=== PATIENT | female | born 1965 | race Two or more races ===

== ENCOUNTER → 2018-05-14 | Outpatient (CLI) | payer OTHER ==
--- NOTE | 2018-05-14 12:54 | CT ---
EXAMINATION TYPE: CT abdomen pelvis w con DATE OF EXAM: 05/14/2018 COMPARISON: None HISTORY: Change in bowel habits, extreme constipation CT DLP: 3070.8 mGycm Automated exposure control for dose reduction was used. CONTRAST: CT scan of the abdomen pelvis is performed with IV Contrast, patient injected with 100 mL of Isovue 3 00. FINDINGS- LUNG BASES-heart size is the upper limits of normal. LIVER/GB-liver reduced in attenuation correlate for hepatic steatosis. PANCREAS- No gross abnormality is seen. SPLEEN- No gross abnormality is seen. ADRENALS- No gross abnormality is seen. KIDNEYS/BLADDER- no hydronephrosis or nephrolithiasis. There are bilateral simple appearing renal cys ts. Larger right upper pole renal lesion has a septation compatible with a Bosniak 2 classification c yst.. BOWEL- no bowel dilatation. Normal appendix. LYMPH NODES- No greater than 1cm abdominal or pelvic lymph nodes areappreciated. OSSEOUS STRUCTURES- No significant abnormality is seen. OTHER- small hiatal hernia noted. Aorta of normal caliber. Hypertrophic change of the vertebral colu mn. Small anterior abdominal wall hernia noted containing peritoneal fat. Calcification the subcutane ous tissues on the right overlying the gluteal region likely related to granuloma. IMPRESSION- 1. Bilateral renal cysts. 2. Correlate for hepatic steatosis. 3. Bowel gas pattern is nonspecific with no obstruction. There does not appear to be a significant am ount of retained fecal debris throughout the colon. Right colon demonstrates a mildly thickened wall which most likely is related to incomplete distention rather than true wall thickening. If there is c oncern for polyp or mucosal lesion correlate with direct visualization as clinically warranted.
== END | disposition home or self-care (01) ==
LOC: RADCTMAIN 10:16
PROVIDERS: ATTEND Family Medicine
DX: N28.1 Cyst of kidney, acquired (principal)
CPT/HCPCS: 74177; Q9967

== ENCOUNTER 2018-06-18 08:25 | Day surgery (SDC) | payer OTHER ==
[~2018-06-18 08:25] MED LIST: LACTATED RINGERS 1,000 ML IV SCH
[2018-06-18 08:45] VITALS: TEMP 97.8
[2018-06-18] MEDS ORDERED: LIDOCAINE 1% 20 ML VIAL (10MG/ML) FOR IV START INTRADERMA ONE (08:50)
[2018-06-18] MEDS ORDERED: LACTATED RINGERS 1,000 ML IV ONE (08:58)
[2018-06-18] MEDS ORDERED: MIDAZOLAM 2 MG/2 ML VIAL ONE (09:17)
[2018-06-18] MEDS ORDERED: fentaNYL (PF) 50 MCG/ML 2 ML AMP ONE (09:17)
[2018-06-18] MEDS ORDERED: PROPOFOL 10 MG/ML 20 ML VIAL IV ONE (09:17)
--- NOTE | 2018-06-18 09:21 | P.GSHP ---
History of Present Illness H&P Date: 06/18/18 Chief Complaint: GERD,Colitis This a 52-year-old female patient safe for EGD and colonoscopy. Patient issues with GERD. She's also had change in bowel movements with abdominal pain and diarrhea. The patient had a computed tomography scan which showed thickening of the right colon wall. Past Medical History Past Medical History: GERD/Reflux, Hyperlipidemia, Hypertension, Musculoskeletal Disorder, Skin Disorder Additional Past Medical History / Comment(s): abd. pain, intermittent blood in stools, back pain, no longer taking BP medication History of Any Multi-Drug Resistant Organisms: None Reported Past Surgical History: Section Additional Past Surgical History / Comment(s): lipoma removed Past Anesthesia/Blood Transfusion Reactions: Motion Sickness Smoking Status: Never smoker - Past Family History Mother Family Medical History: No Reported History Medications and Allergies Home Medications Medication Instructions Recorded Confirmed Type Atorvastatin [Lipitor] 20 mg PO HS 10/21/15 06/14/18 History Cyclobenzaprine [Flexeril] 10 mg PO HS 10/21/15 06/14/18 History Amitriptyline HCl [Elavil] 25 mg PO HS 06/14/18 06/14/18 History Naproxen [Naprosyn] 500 mg PO Q12HR PRN 06/14/18 06/14/18 History Allergies Allergy/AdvReac Type Severity Reaction Status Date / Time No Known Allergies Allergy Verified 06/13/18 15:30 Surgical - Exam Vital Signs Temp Pulse Resp BP Pulse Ox 97.8 F 78 18 133/60 98 06/18/18 08:44 06/18/18 08:44 06/18/18 08:44 06/18/18 08:44 06/18/18 08:44 - General well developed, well nourished, no distress - Eyes PERRL - ENT normal pinna - Neck no masses - Respiratory normal expansion - Cardiovascular Rhythm: regular - Abdomen Abdomen: soft, non tender Assessment and Plan Assessment: GERD Colitis We'll perform EGD and colonoscopy.
--- NOTE | 2018-06-18 09:38 | P.OP ---
Date of Procedure: 06/18/18 Preoperative Diagnosis: GERD Colitis Postoperative Diagnosis: GERD Colitis Procedure(s) Performed: EGD Colonoscopy Anesthesia: MAC Surgeon: Tristan Blevins Pathology: other (Antrum, esophagus) Condition: stable Disposition: PACU Description of Procedure: The patient's placed on the endoscopy table in the lateral position. She received IV sedation. The gastroscope placed oropharynx and passed in the esophagus and stomach. Scope was then placed through the pylorus. The first and second portion of the duodenum appeared normal. Scope summer back the antrum this above inflamed. A biopsies performed. Scope was then retroflexed and the remainder of the stomach appeared normal. There is no evidence of a hiatal hernia. The GE junction was at 40 cm. The distal esophagus appeared minimally inflamed and a biopsies performed. The proximal esophagus appeared normal. Scope was withdrawn for patient. Next digital rectal exam was performed. There were external hemorrhoids noted. The flexible colonoscope was then advanced in the patient's rectum passed throughout the entire colon. The ileocecal valve was visualized. The right colon appeared normal. A random biopsies performed due to the computed tomography scan findings of colonic wall thickening. The remainder the ascending and transverse colon appeared normal. In the descending and; there a few scattered diverticula. The scope was then brought back the rectum and this appeared normal. Scope was withdrawn for patient.
[2018-06-18 09:46] VITALS: RESP 16
[2018-06-18 10:07] VITALS: BP 116/82; PULSE 80
== END 2018-06-18 10:23 | disposition home or self-care (01) ==
LOC: ORWHC2ENDO 08:25
PROVIDERS: ATTEND Surgery
DX: K52.9 Noninfective gastroenteritis and colitis, unspecified (principal); K21.0 Gastro-esophageal reflux disease with esophagitis; K29.50 Unspecified chronic gastritis without bleeding; K64.4 Residual hemorrhoidal skin tags; K57.30 Diverticulosis of large intestine without perforation or abscess without bleeding; I10 Essential (primary) hypertension; E78.5 Hyperlipidemia, unspecified; E66.01 Morbid (severe) obesity due to excess calories; Z79.1 Long term (current) use of non-steroidal anti-inflammatories (NSAID); Z79.899 Other long term (current) drug therapy
CPT/HCPCS: 81025; 88305; 45380; 43239; J2250; J3010; J2704